=== PATIENT | female | born 1985 | race Caucasian/White ===

== ENCOUNTER 2021-02-24 16:41 | Emergency (ER) | payer OTHER ==
[~2021-02-24] VITALS: Ht 167.6 cm; Wt 68.0 kg
[2021-02-24 17:57] LABS: BILIRUBIN,URINE Negative (NEGATIVE); COLOR,URINE YELLOW (YELLOW); LEUKOCYTE ESTERASE ,URINE Negative (NEGATIVE); NITRITE, URINE Negative (NEGATIVE); PH,URINE 5.5 (5.0-8.0); PROTEIN,URINE Negative (NEGATIVE); UGLUCOSE Negative (NEGATIVE); UROBILINOGEN,URINE 0.2 EU/dL (0.2)
[2021-02-24 17:57] LABS: BASOPHILS % (AUTO) 0.7 % (0.0-2.0); EOSINOPHILS % (AUTO) 2.9 % (0.0-6.0); HEMATOCRIT 38 % (33-45); HEMOGLOBIN 12.7 g/dL (11.5-14.8); LYMPHOCYTES % (AUTO) 29.3 % (20.0-44.0); MEAN CORPUSCULAR HGB CONC 34 g/dl (31.0-36.0); MEAN CORPUSCULAR VOLUME 95 fL (82-100); MONOCYTES # (AUTO) 0.4 K/uL (0.1-1.30); MONOCYTES % (AUTO) 6.6 % (2.0-12.0); NEUTROPHILS # (AUTO) 4.1 K/uL (1.8-8.9); NEUTROPHILS % (AUTO) 60.5 % (43.0-81.0); PLATELET COUNT (AUTO) 183 K/uL (150-450); RED BLOOD CELL COUNT(AUTO) 3.99 MIL/uL (4.0-5.2); WHITE BLOOD COUNT (AUTO) 6.7 K/uL (4.3-11.0)
[2021-02-24 18:10] LABS: BACTERIA,URINE Rare /HPF (None Seen); RBC,URINE NONE SEEN /HPF (0-2); SQUAMOUS EPITHELIAL CELL,UR Few /HPF (None Seen); WBC,URINE NONE SEEN /HPF (0-3)
[2021-02-24 18:12] LABS: CALCIUM, SERUM 8.9 mg/dL (8.5-10.1); CREATININE 0.9 mg/dL (0.6-1.3); POTASSIUM 3.7 mmol/L (3.5-5.1)
--- NOTE | 2021-02-24 19:07 | NUR ---
pt bibself c/o vaginal bleeding [id number]. pt [id number] breathing evenly and unlabored. attached to monitor and pox.
--- NOTE | 2021-02-24 19:07 | NUR ---
[facility] SENT TO THE LAB
[2021-02-24] MEDS ORDERED: LIDOCAINE /MPF 1% VIAL 5 ML VIAL ONE (19:20)
[2021-02-24] MEDS ORDERED: CEFTRIAXONE 500 MG VIAL ONE (19:20)
[2021-02-24] MEDS ORDERED: AZITHROMYCIN 250 MG TABLET ONE (19:21)
[2021-02-24] MEDS ORDERED: METRONIDAZOLE 500 MG TABLET ONE (19:21)
[2021-02-24] MEDS ORDERED: AZITHROMYCIN 250 MG TABLET PO ONE (19:30)
[2021-02-24] MEDS ORDERED: CEFTRIAXONE 500 MG VIAL IM ONE (19:30)
[2021-02-24] MEDS ORDERED: METRONIDAZOLE 500 MG TABLET PO ONE (19:30)
--- NOTE | 2021-02-24 19:55 | NUR ---
Patient discharged to home in stable condition. Written and verbal after care instructions given. Patient verbalizes understanding of instruction. Pt ambulatory with a steady gait
[2021-02-24 19:58] VITALS: BP 102/67
== END 2021-02-24 20:32 | disposition home or self-care (01) ==
LOC: ER 16:45
DX: A74.9 Chlamydial infection, unspecified (principal); A59.01 Trichomonal vulvovaginitis; N93.9 Abnormal uterine and vaginal bleeding, unspecified; F12.90 Cannabis use, unspecified, uncomplicated
CPT/HCPCS: 36415; 76856; 80048; 81001; 84703; 85025; 87210; 96372; 99284; A6403; J0696; J3490